=== PATIENT | female | born 1975 | race Caucasian/White ===

== ENCOUNTER → 2020-02-19 12:56 | Outpatient (CLI) | payer OTHER, SELFPAY ==
--- NOTE | ~2020-02-19 | US_ITS ---
US right upper quadrant INDICATION: Epigastric pain. Difficulty swallowing. PROCEDURE: Realtime right upper abdominal ultrasound. COMPARISON: No prior studies for comparison. FINDINGS: The pancreas is normal without focal mass or pancreatic ductal dilation. In the subcapsula r region of the left hepatic lobe there is an oval hyperechoic mass measuring 2.2 x 2 x 1.7 cm. Ther e is normal directional flow in the portal vein. The gallbladder is normal without stones, gallbladder wall thickening or pericholecystic fluid. Comm on bile duct measures 3.4 mm. No sonographic Gayle's sign. IMPRESSION: 1: 2.2 cm hyperechoic mass left hepatic lobe. In the absence of known malignancy in this likely repre sents a benign hemangioma. Recommend follow-up ultrasound in 6 months to assess for stability. Reviewed, dictated and finalized at location B. IMPRESSION: 1: 2.2 cm hyperechoic mass left hepatic lobe. In the absence of known malignanc y in this likely represents a benign hemangioma. Recommend follow-up ultrasound in 6 months to assess for stability.
== END ==
PROVIDERS: PCP Family Medicine; Visit Provider Nurse Practitioner Family
DX: R10.13 Epigastric pain (principal); R16.0 Hepatomegaly, not elsewhere classified
CPT/HCPCS: 76705

== ENCOUNTER 2024-05-23 12:14 | Outpatient (CLI) | payer OTHER, SELFPAY ==
--- NOTE | ~2024-05-23 | MR_ITS ---
EXAMINATION: MR brain/brain stem wo/w con DATE: 05/23/2024 13:01 INDICATION: Dizziness TECHNIQUE: Magnetic resonance imaging (MRI) of the brain and brainstem was performed without and with 15 mL Multihance intravenous contrast. Sequences included sagittal and axial T1-weighted FSE, axial diffusion-weighted FS EPI, axial T2*-weighted GRE, axial T2-weighted FLAIR Propeller, axial T2-weight ed Propeller, small bhpkb-wt-zxkc coronal FIESTA, small zajda-ni-vlnh coronal T1-weighted FSE, and sm all niasz-bj-aakg axial T1-weighted SPGR. Postcontrast sequences included axial T1-weighted FSE, smal l ulmak-ho-xbsm coronal T1-weighted FSE, and small eprby-cv-nygd axial T1-weighted SPGR. Apparent dif fusion coefficient (ADC) maps were created. COMPARISON: None. FINDINGS: There are no areas of restricted diffusion to suggest acute infarction. No intracranial hemorrhage or abnormal intracranial mass lesion. There are no intraparenchymal signal abnormalities seen on the ot her pulse sequences. The ventricles are symmetric and normal in size. There are no abnormal extra-axi al fluid collections. Normal seventh/eighth cranial nerve complexes. No cerebellopontine angles mass es. No evidence of mastoid or middle ear fluid. Flow voids are seen in the cerebral arteries on th e T2-weighted sequences consistent with their expected patency. Visualized orbits and soft tissues ar e unremarkable. There are no areas of abnormal enhancement on the post contrast images. IMPRESSION: 1. Unremarkable MRI of the brain and internal auditory canals. Reviewed, dictated and finalized at location A. IR ORDER CLERK
== END 2024-05-23 12:15 | disposition home or self-care (01) ==
LOC: MICIMG 12:16
PROVIDERS: PCP Family Medicine; Visit Provider Family Medicine
DX: R42 Dizziness and giddiness (principal); I95.89 Other hypotension
CPT/HCPCS: 70553; A9577

== ENCOUNTER 2024-07-17 10:22 | Outpatient (CLI) | payer OTHER, SELFPAY ==
--- OUTSIDE RECORDS SUMMARY | 2024-07-17 11:17 | XMS_ITS | Referral Summary ---
Author Organization [facility] Address [address] [place] [address] Care Team Providers Care Revenue Tax Specialist Name Role Phone Tracy Aguilar MD Primary Care Provider Allergies Active Allergy Reactions Criticality Noted Date Comments Levofloxacin Hives Medium 07/04/2013 Medications spironolactone (ALDACTONE) 25 mg tablet Take 1 tablet (25 mg total) by mouth daily 12/17/2019 Active minocycline (DYNACIN) 50 mg tablet Take 2 tablets (100 mg total) by mouth 2 (two) times a day Active Active Problems Problem Noted Date Diagnosed Date Rosacea 04/02/2024 Family history of breast cancer 07/04/2018 At risk for breast cancer 09/13/2016 Social History Tobacco Use Types Packs/Day Years Used Date Smoking Tobacco: Never Tobacco Cessation:Counseling Given: Not Answered Alcohol Use Standard Drinks/Week Comments Never 0 (1 standard drink = 0.6 oz pur e alcohol) AUDIT-C Answer Date Recorded Frequency of Alcohol Consumption Never 02/17/2020 Average Number of Drinks Not on file 020 Frequency of Binge Drinking Not on file 01/29 Comments No Sex and Gender Information Value Date Recorded Sex Assigned at Not on file Legal Sex Female 1:08 PM BULLDOZER OPERATOR Gender Identity Not on file Sexual Orientation Not on file Last Filed Vital Signs Vital Sign Reading Time Taken Comments Blood Pressure 104/69 08/25/2014 11:52 AM CDT Pulse 78 08/25/2014 11:52 AM CDT Temperature - - Respiratory Rate - - Oxygen Saturation 99% 08/25/2014 11:52 AM CDT Inhaled Oxygen Concentration - - Weight 74.9 kg (165 lb 3.2 oz) 04/02/2024 2:31 P M BULLDOZER OPERATOR Height 162.6 cm (5' 4.02 ) 03/16/2023 2:31 PM CS T Body Mass Index 28.34 03/16/2023 2:31 PM BULLDOZER OPERATOR Plan of Treatment Not on file Procedures Procedure Name Priority Date/Time Associated Diagnosis Comments SCREENING MAMMOGRAM BILATERAL W MEMO Schedule Routine, Read Routine (OP Routine) 04/02/2024 3:19 PM BULLDOZER OPERATOR Family history of breast cancer from Last 3 Months or Most Recently Relevant to Health Maintenance Results * Screening Mammogram Bilateral W Memo (04/02/2024 3:19 PM BULLDOZER OPERATOR) Anatomical Region Laterality Modality Breast Bilateral Mammography Narrative 04/03/2024 11:26 AM BULLDOZER OPERATOR Mammogram Technique: Bilateral Digital Breast Tomosynthesis, Bilateral C-view 2D Screening mammogram. Views obtained: bilateral craniocaudal and bilateral mediolateral oblique. Computer Aided Detection was performed. Mammogram Findings: The present examination has been compared to prior imaging studies performed at [facility] on 02/25/2021, 03/03/2022 and 03/16/2023. The breasts are heterogeneously dense, which may obscure small masses. There is no suspicious abnormality in either breast. Impression: There is no mammographic evidence of malignancy. Annual screening mammography is recommended. If supplemental screening is desired, breast MRI would be recommended in this patient with heterogeneously dense breasts. OVERALL FINAL ASSESSMENT: BI-RADS CATEGORY 1: Negative. Procedure Note Monie Flores MD - 04/03/2024 Mammogram Technique: Bilateral Digital Breast Tomosynthesis, Bilateral C-view 2D Screening mammogram. Views obtained: bilateral craniocaudal and bilateral mediolateral oblique. Computer Aided Detection was performed. Mammogram Findings: The present examination has been compared to prior imaging studies performed at [facility] on 02/25/2021, 03/03/2022 and 03/16/2023. The breasts are heterogeneously dense, which may obscure small masses. There is no suspicious abnormality in either breast. Impression: There is no mammographic evidence of malignancy. Annual screening mammography is recommended. If supplemental screeningis desired, breast MRI would be recommended in this patient with heterogeneously dense breasts. OVERALL FINAL ASSESSMENT: BI-RADS CATEGORY 1: Negative. Siena Hale DIRECTOR OF HOME ECONOMICS IMG MAMMO PROCEDURES Fi nal Result from Last 3 Months or Most Recently Relevant to Health Maintenance Insurance [employer] PPO eigital [facility] [id number] [place] [address] [facility] [id number] [facility] [id number] Care Teams Revenue Tax Specialist Relationship Specialty Start Date End Date Tracy Aguilar MD [address] [place] [address] PCP - General Family Medicine 03/13/23
--- OUTSIDE RECORDS SUMMARY | 2024-07-17 11:17 | XMS_ITS | Clinical Summary ---
Author Organization [facility] Address [address] [place] [address] Care Team Providers Care Refrigerator Repair Technician Name Role Phone Tracy Aguilar MD Primary [...] 07/04/2018 At risk for breast cancer 09/13/2016 Surgical History Surgery Date Site/Laterality Comments ABLATION TUBAL LIGATION BREAST BIOPSY 08/05/2021 Left Family History Medical History Relation Name Comments Breast cancer Mother Breast cancer Paternal Grandmother age un known maybe 40's Relation Name Status Comments Mother Paternal Grandmother Social History Tobacco Use Types Packs/Day Years [...] on file Legal Sex Female 1:08 PM ADVANCED PRACTICE NURSE Gender Identity Not on file Sexual Orientation Not on file Obstetrics History Last Filed Vital Signs Vital Sign Reading Time Taken Comments Blood Pressure 104/69 08/25/2014 11:52 AM CDT Pulse 78 08/25/2014 11:52 AM CDT Temperature - - Respiratory Rate - - Oxygen Saturation 99% 08/25/2014 11:52 AM CDT Inhaled Oxygen Concentration - - Weight 74.9 kg (165 lb 3.2 oz) 04/02/2024 2:31 P M ADVANCED PRACTICE NURSE Height 162.6 cm (5' 4.02 ) 03/16/2023 2:31 PM CS T Body Mass Index 28.34 03/16/2023 2:31 PM ADVANCED PRACTICE NURSE Plan of Treatment Health Maintenance Due Date Last Done Comments Cervical Cancer Screening 1977 Colon Cancer Screening-Colonoscopy 1977 Depression Screening 1977 Hepatitis C Screening 1977 Hepatitis B Screening 1995 Regular Well Visit/Exam 18-64 1995 DTaP/Tdap/Td Vaccine (6 - Tdap) 05/22/2002 05/21/2002, 11/26/1991, 12/19/1982, Additional history exists Influenza Vaccine (#1) 2023 Breast Cancer Screening-Mammogram 04/02/2025 04/02/2024, 03/16/2023, 03/03/2022, Additional history exists Pneumococcal vaccine <65 Aged Out No longer eligible based on patient's age to complete this topic Procedures Procedure Name Priority Date/Time Associated Diagnosis Comments SCREENING MAMMOGRAM BILATERAL W MEMO Schedule Routine, Read Routine (OP Routine) 04/02/2024 3:19 PM ADVANCED PRACTICE NURSE Family history of breast cancer from Last 3 Months or Most Recently Relevant to Health Maintenance Results * Screening Mammogram Bilateral W Memo (04/02/2024 3:19 PM ADVANCED PRACTICE NURSE) Anatomical Region Laterality Modality Breast Bilateral Mammography Narrative 04/03/2024 11:26 AM ADVANCED PRACTICE NURSE Mammogram Technique: Bilateral Digital Breast Tomosynthesis, Bilateral C-view 2D Screening mammogram. Views obtained: bilateral craniocaudal and bilateral mediolateral oblique. Computer Aided Detection was performed. Mammogram Findings: The present examination has been compared to prior imaging studies performed at [facility] on 02/25/2021, 03/03/2022 and 03/16/2023. The [...] compared to prior imaging studies performed at [facility] on 02/25/2021, 03/03/2022 and 03/16/2023. The breasts are heterogeneously dense, which may obscure small masses. There is no suspicious abnormality in either breast. Impression: There is no mammographic evidence of malignancy. Annual screening mammography is recommended. If supplemental screeningis desired, breast MRI would be recommended in this patient with heterogeneously dense breasts. OVERALL FINAL ASSESSMENT: BI-RADS CATEGORY 1: Negative. Siena Hale NP IMG MAMMO PROCEDURES Fi nal Result from Last 3 Months or Most Recently Relevant to Health Maintenance Insurance Months Of Me PPO [facility] [facility] BLUE ACCESS [facility] [id number] [facility] [id number] [facility] [id number] Care Teams Refrigerator Repair Technician Relationship Specialty Start Date End Date Tracy Aguilar MD [address] [place] [address] PCP - General Family Medicine 03/13/23
--- OUTSIDE RECORDS SUMMARY | 2024-07-17 11:18 | XMS_ITS | Clinical Summary ---
Author Organization [facility] Address [facility] [place] [address] Care Team Providers Care Trumpet Player Name Role Phone Tracy Aguilar MD Primary Care Provider Allergies Active Allergy Reactions Criticality Noted Date Comments Levofloxacin Hives 07/04/2013 Medications clindamycin (CLEOCIN T) 1 % gel Apply topically 2 (two) times daily. 3 Active doxycycline hyclate (VIBRAMYCIN) 100 MG capsule Take 1 capsule (100 mg total) by mouth 2 (two) times daily with meals. 4 Active Active Problems No known active problems Encounters Date Type Department Care Team Description 05/21/2024 4:20 PM WEB ART DIRECTOR - 05/21/2024 11:59 PM [facility] Hospital Encounter [facility] [address] [place] [address] Umesh Rodriguez PA Discharge Disposition: Home or Self Care (Routine Discharge) 05/21/2024 Orders Only [facility] [address] [address] Umesh Rodriguez PA 05/21/2024 Travel from Last 3 Months Immunizations Name Administration Dates Next Due Dtp (Generic) 12/19/1982,02/01/1979,1977 ,1977,1977 MMR (MMRII) 11/26/1991,08/29/1978 Polio Opv (Generic) 12/19/1982,02/01/1979,1977,1977,1977 Td (TDVAX) 05/21/2002,11/26/1991 Social History Tobacco Use Types Packs/Day Years Used Date Smoking Tobacco: Never Smokeless Tobacco: Never Tobacco Cessation:Counseling Given: No PHQ-2 Answer Date Recorded Patient Health Questionnaire-2 Score 0 11/20/2023 Comments No Sex and Gender Information Value Date Recorded Sex Assigned at Female 05/21/2024 4:16 PM WEB ART DIRECTOR Legal Sex Female 5:27 PM CDT Gender Identity Not on file Sexual Orientation Not on file Last Filed Vital Signs Vital Sign Reading Time Taken Comments Blood Pressure 98/68 11/20/2023 7:39 AM CDT Pulse 90 11/20/2023 7:39 AM CDT Temperature 36.8 C (98.2 F) 11/20/2023 7:39 AM CDT Respiratory Rate 12 11/20/2023 7:39 AM CDT Oxygen Saturation 100% 11/20/2023 7:39 AM CDT Inhaled Oxygen Concentration - - Weight 74.8 kg (165 lb) 11/20/2023 7:39 AM CDT Height 162.6 cm (5' 4 ) 11/20/2023 7:39 AM CDT Body Mass Index 28.32 11/20/2023 7:39 AM CDT Plan of Treatment Health Maintenance Due Date Last Done Comments Cervical Cancer Screening Pap Smear (Age 30 to 64) Every 3 Years 1977 Colorectal Cancer Screening Colonoscopy (10 Years) 1977 Annual Physical 1980 Hepatitis C 1995 Hepatitis B Vaccines (1 of 3 - 19+ 3-dose series) 1996 DTaP, Tdap and Td Vaccines (6 - Tdap) 05/22/2002 05/21/2002, 11/26/1991, 12/19/1982, Additional history exists Cervical Cancer Screening Pap with HPV Testing (Age 30 to 64) Every 5 Years 2007 Cervical Cancer Screening with HPV 2007 COVID-19 Vaccine ( season) 2023 Influenza Adult (#1) 2024 PHQ-2 (Physician [place]) 04/30/2024 11/20/2023 Mammogram Screening 04/02/2026 04/02/2024, 03/16/2023, 03/03/2022, Additional history exists Meningococcal B Vaccine Aged Out No l onger eligible based on patient's age to complete this topic Meningococcal Vaccine Aged Out No celio trell eligible based on patient's age to complete this topic Pneumococcal Vaccine: Pediatrics (0 to 5 Years) and At-Risk Patients (6 to 64 Years) Aged Out No longer eligible based on patient's age to complete this topic RSV Immunizations Under 20 Months Aged Out No longer eligible based on patient's age to complete this topic Procedures Procedure Name Priority Date/Time Associated Diagnosis Comments SED RATE, ERYTHROCYTE (ESR) Routine 05/21/2024 4:26 PM WEB ART DIRECTOR Dizziness Other specified hypotension Diaphoresis IRON SAT PANEL (IRON,IBC,%SAT) Routine 05/21/2024 4:26 PM WEB ART DIRECTOR Dizziness Other specified hypotension Diaphoresis COMPREHENSIVE METABOLIC PANEL Routine 05/21/2024 4:26 PM WEB ART DIRECTOR Dizziness Other specified hypotension Diaphoresis THYROID STIM HORMONE TSH Routine 05/21/2024 4:26 PM WEB ART DIRECTOR Dizziness Other specified hypotension Diaphoresis CBC W/DIFF AUTOMATED Routine 05/21/2024 4:26 PM WEB ART DIRECTOR Dizziness Other specified hypotension Diaphoresis T4, FREE, DIRECT DIALYSIS Routine 05/21/2024 4:26 PM WEB ART DIRECTOR Dizziness Other specified hypotension Diaphoresis from Last 3 Months Results * T4, FREE, DIRECT DIALYSIS (05/21/2024 4:26 PM WEB ART DIRECTOR) T4 FREE DIRECT DIALYSIS 2.1 0.9 - 2.2 ng/dL 05/28/2024 2:26 PM WEB ART DIRECTOR [facility] Comment: reference ranges: First Trimester: 0.9-2.0 ng/dL Second Trimester: 0.8-1.5 ng/dL Third Trimester: 0.8-1.7 ng/dL This test was developed and its analytical performance characteristics have been determined by [employer] [place], [place]. It has not been cleared or approved by the U.S. Food and Drug Administration. This assay has been validated pursuant to the CLIA regulations and is used for clinical purposes. Test Performed by [facility], [facility], [address] [place] [address] Marcos Strong M.D., Ph.D., Director of Laboratories , CLIA [id number] 05/21/2024 4:26 PM WEB ART DIRECTOR Umesh Rodriguez [place] LABORATORY Final Resu lt Performing Organization Address [facility]/ZIP Co de Phone Number [employer] [address] , [place] [phone] * IRON SAT PANEL (IRON,IBC,%SAT) (05/21/2024 4:26 PM WEB ART DIRECTOR) IRON 72 50.0 - 170.0 MCG/DL 05/22/2024 6:18 PM WEB ART DIRECTOR [facility] IRON BINDING CAPACITY 272 250 - 450 MCG/DL 05/22/2024 6:18 PM WEB ART DIRECTOR [facility] IRON SATURATION 26 20 - 55 % 6:18 PM WEB ART DIRECTOR [facility] 05/21/2024 4:26 PM WEB ART DIRECTOR [facility] [place] LABORATORY Final Resu lt [facility] [address] [place] [address], [place] [phone] * SED RATE, ERYTHROCYTE (ESR) (05/21/2024 4:26 PM WEB ART DIRECTOR) ESR 1 <20 MM/HR 05/21/2024 9:39 PM WEB ART DIRECTOR [facility] Comment:Testing performed on [employer] iSED. 05/21/2024 4:26 PM WEB ART DIRECTOR us Umesh Rodriguez PA LABORATORY Final Resu lt [facility] [address] [place] [address], [place] [phone] * (ABNORMAL) COMPREHENSIVE METABOLIC PANEL (05/21/2024 4:26 PM WEB ART DIRECTOR) [facility] GLUCOSE 127(H) 70 - 99 MG/DL 05/21/2024 5:00 PM [facility] BUN 15 7 - 18 MG/DL 05/21/2024 5:00 PM [facility] CREATININE S/P/B 0.75 0.50 - 1.20 MG/DL 05/21/2024 5:00 PM [facility] SODIUM S/P/B 138 136 - 145 MMOL/L 05/21/2024 5:00 PM [facility] POTASSIUM S/P/B 4.0 3.5 - 5.1 MMOL/L 05/21/2024 5:00 PM [facility] CHLORIDE S/P/B 100 100 - 108 MMOL/L 05/21/2024 5:00 PM [facility] CO2 29.2 21.0 - 32.0 MMOL/L 05/21/2024 5:00 PM [facility] CALCIUM S/P/B 8.4(L) 8.5 - 10.1 MG/DL 05/21/2024 5:00 PM [facility] BILIRUBIN TOTAL S/P/B 0.6 0.2 - 1.2 MG/DL 05/21/2024 5:00 PM [facility] Comment: THIS ASSAY IS NOT RECOMMENDED FOR PATIENTS UNDERGOING TREATMENT WITH ELTROMBOPAG DUE TO THE POTENTIAL FOR FALSELY ELEVATED RESULTS. TOTAL PROTEIN S/P/B 7.0 6.4 - 8.2 G/DL 05/21/2024 5:00 PM [facility] ALBUMIN S/P/B 3.9 3.4 - 5.0 G/DL 05/21/2024 5:00 PM [facility] AST 12(L) 15 - 37 U/L 05/21/2024 5:00 PM [facility] ALT 14 14 - 55 U/L 05/21/2024 5:00 PM [facility] ALKALINE PHOSPHATASE S/P/B 74 50 - 136 U/L 05/21/2024 5:00 PM [facility] ANION GAP 8.8 5.0 - 15.0 MMOL/L 05/21/2024 5:00 PM [facility] BUN CREATININE RATIO 20.0 6 - 26 05/21/2024 5:00 PM [facility] A/G RATIO 1.3 1.0 - 2.5 RATIO 05/21/2024 5:00 PM [facility] GFR ESTIMATE >90 >90 ML/MIN/1.7 3 M2 05/21/2024 5:00 PM [facility] Comment: NOTE: eGFR is not calculated for patients <18 years of age. This is an estimated GFR calculation using the new CKD EPI creatinine equation without race and so does not require a correction factor for race. This estimated GFR should not be used for calculating drug doses. 05/21/2024 4:26 PM WEB ART DIRECTOR us Umesh CHO LABORATORY Final Resu lt [address] [place] [address], * (ABNORMAL) CBC W/DIFF AUTOMATED (05/21/2024 4:26 PM WEB ART DIRECTOR) WBC 6.07 4.50 - 11.00 x10'3/uL 05/21/2024 4:40 PM [facility] RBC 4.85 4.00 - 5.20 x10'6/uL 05/21/2024 4:40 PM [facility] HGB 13.9 12.0 - 16.0 G/DL 05/21/2024 4:40 PM [facility] HCT 42.5 38.0 - 48.0 % 05/21/2024 4:40 PM [facility] MCV 87.6 80.0 - 100.0 FL 05/21/2024 4:40 PM [facility] MCH 28.7 26.0 - 34.0 PG 05/21/2024 4:40 PM [facility] MCHC 32.7 31.0 - 37.0 G/DL 05/21/2024 4:40 PM [facility] RDW 12.1 11.6 - 14.8 % 05/21/2024 4:40 PM [facility] PLT 319 130 - 400 x10'3/uL 05/21/2024 4:40 PM [facility] MPV 10.0 7.0 - 12.0 FL 05/21/2024 4:40 PM [facility] CBC COMMENT AUTOMATED RBC MORPHOLOGY AND PLATELET EVALUATION NORMAL 05/21/2024 4:40 PM [facility] NEUTROPHILS % 79.3(H) 40.0 - 74.0 % 05/21/2024 4:40 PM [facility] LYMPHOCYTES % 15.8 14.0 - 46.0 % 05/21/2024 4:40 PM [facility] MONOCYTES % 3.6(L) 4.0 - 13.0 % 05/21/2024 4:40 PM [facility] EOSINOPHILS 0.3 0.0 - 7.0 % 05/21/2024 4:40 PM [facility] BASOPHILS 0.7 0.0 - 3.0 % 05/21/2024 4:40 PM [facility] IMMATURE GRANS % 0.3 0.0 - 0.43 % 05/21/2024 4:40 PM WEB ART DIRECTOR [facility] NRBC % 0.0 % 05/21/2024 4:40 PM WEB ART DIRECTOR [facility] ABS. NEUTROPHILS TOTAL 4.81 1.69 - 7.81 x10'3/uL 05/21/2024 4:40 PM WEB ART DIRECTOR [facility] ABS. LYMPHOCYTES 0.96 0.21 - 5.42 x10'3/uL 05/21/2024 4:40 PM WEB ART DIRECTOR [facility] ABS. MONOCYTES 0.22 0.04 - 1.37 x10'3/uL 05/21/2024 4:40 PM WEB ART DIRECTOR [facility] ABS. EOSINOPHILS 0.02 0.00 - 0.68 x10'3/uL 05/21/2024 4:40 PM WEB ART DIRECTOR [facility] ABS. BASOPHILS 0.04 0.00 - 0.08 x10'3/uL 05/21/2024 4:40 PM WEB ART DIRECTOR [facility] ABS. IMMATURE GRANULOCYTES 0.02 0.00 - 0.06 x10'3/uL 05/21/2024 4:40 PM WEB ART DIRECTOR [facility] ABS. NUCLEATED RBC'S 0.00 0.00 - 0.01 x10'3/uL 05/21/2024 4:40 PM [facility] 05/21/2024 4:26 PM WEB ART DIRECTOR us Umesh Rodriguez PA LABORATORY Final Resu lt [facility] [address] [place] [address], * THYROID STIM HORMONE TSH (05/21/2024 4:26 PM WEB ART DIRECTOR) TSH 1.170 0.358 - 3.74 uIU/ML 05/21/2024 9:45 PM WEB ART DIRECTOR [facility] Comment: HIGH DOSES OF BIOTIN MAY INTERFERE WITH THIS TEST RESULT. CORRELATION TO CLINICAL HISTORY AND PRESENTATION RECOMMENDED. 05/21/2024 4:26 PM WEB ART DIRECTOR us Umesh Rodriguez PA LABORATORY Final Resu lt [facility] [address] [place] [address], [place] [phone] from Last 3 Months Insurance [facility] RISK MANAGEMENT [facility] Care Teams Trumpet Player Relationship Specialty Start Date End Date Tracy Aguilar MD [address] [place] [address] [place] [address] PCP - General FAMILY PRACTICE 05/21/24
[2024-07-18 06:28] LABS: FSH 14.2 mIU/mL
[2024-07-22 21:19] LABS: Estrogen 177 pg/mL
== END 2024-07-17 10:23 | disposition home or self-care (01) ==
PROVIDERS: PCP Family Medicine; Visit Provider Obstetrics & Gynecology
DX: N95.1 Menopausal and female climacteric states (principal)
CPT/HCPCS: 36415; 82672; 83001; 84443

== ENCOUNTER 2024-09-20 18:24 | Emergency (ER) | payer OTHER, SELFPAY ==
[2024-09-20 18:29] VITALS: BP 103/78; PULSE 78; RESP 16; TEMP 36.3; O2SAT 100
--- NOTE | 2024-09-20 18:34 | ED.SKABFB ---
HPI - Skin/Abscess/Foreign Bdy General Chief complaint: Skin/Abscess/Foreign Body Stated complaint: Skin/Abscess/Foreign Body Time Seen by Provider: 09/20/24 18:34 Source: patient Mode of arrival: ambulatory Limitations: no limitations History of Present Illness HPI narrative: 49-year-old female presents with complaint of poison claire rash to neck. In the past reports that poison claire spread significantly, IM Kenalog was the only thing that helped. All systems reviewed and negative except as noted above. Related Data Home Medications ?Medication ?Instructions ?Recorded ?Confirmed ?Last Taken ?Type nystatin 100,000 unit/gram topical topical 09/20/24 Unknown History powder (Klayesta) tacrolimus 0.03 % topical ointment topical 09/20/24 Unknown History Allergies Allergy/AdvReac Type Severity Reaction Status Date / Time metronidazole Allergy Mild HIVES Verified 09/20/24 18:36 levofloxacin Allergy Unknown unknown Verified 09/20/24 18:36 Review of Systems Review of Systems: CONSTITUTIONAL: Denies fever, chills, or sweats. EYES: Denies visual changes, redness, or discharge. ENT: Denies rhinorrhea, congestion, sore throat, or otalgia. CARDIOVASCULAR: Denies chest pain, palpitations, or edema. RESPIRATORY: Denies cough or dyspnea. GASTROINTESTINAL: Denies abdominal pain, nausea, vomiting, or diarrhea. GENITOURINARY: Denies dysuria or hematuria. SKIN: Reports poison claire rash with itching. MUSCULOSKELETAL: Denies back pain, joint pain, or myalgia. NEUROLOGIC: Denies headache, numbness, or weakness. PSYCHIATRIC: Denies anxiety or depression. All other systems reviewed are negative, except as documented in HPI. [facility]LY [facility] Past Medical History Medical History DUB (dysfunctional uterine bleeding) Abnormal Pap smear of cervix 2019 ASCUS, HPV pos 11/14/19 ASCUS, HPV neg Vaginal delivery x 2 Surgical History Surgical History History of foot surgery History of colposcopy 2005 History of tubal ligation History of endometrial ablation Family History Family History Grandparent Diabetes mellitus Mother Family history of malignant neoplasm of breast in first degree relative Other Cerebrovascular accident Family history of cardiovascular disease Family history of type 2 diabetes mellitus Hypertension Social History Social History Smoking status: Never smoker Second hand tobacco smoke exposure: No Alcohol intake: never Substance use: unknown Do You Feel Safe in your Home?: Yes Lack of Transportation: No Lack of Food: Never True Current Housing: I Have Housing Concerned About Future Housing: No Difficulty Paying Gas/Electric Bills: No Difficulty Paying for Meds: No Currently Unemployed: No Education: Associate Degree Difficulty w/ Childcare or Family Care: No Comments At time of signature, agree with nursing past medical, surgical, social and family history. There is no relevant family history pertinent to the presenting complaint. Exam Narrative: GENERAL: This is a well-nourished, well-developed patient, in no apparent distress. HEAD: normocephalic, atraumatic. EYES: PERRL. Sclera clear/white. Vision is grossly intact. EARS: External ears nereyda NOSE: External nose normal NECK: Neck supple, non-tender without lymphadenopathy, masses or thyromegaly. CARDIOVASCULAR: Regular rate and rhythm without murmurs, gallops, or rubs. RESPIRATORY: Clear to auscultation. Breath sounds equal bilaterally. No wheezes, rales, or rhonchi. SKIN: warm, Dry, intact, good texture and turgor. Erythema with mild swelling noted to anterior aspect of neck and underneath chin. NEURO: awake, alert, and oriented to person, place and time. There were no obvious focal neurologic abnormalities. EXTREMITIES: No joint tenderness, effusion, or edema noted. Course Course Level of Care: Express Care Visit Vital Signs Vital signs: Vital Signs Temperature 36.3 C L 09/20/24 18:29 Pulse Rate 78 09/20/24 18: Respiratory Rate 16 09/20/24 18: Blood Pressure 103/78 09/20/24 18: Pulse Oximetry 100 09/20/24 18:29 Temperature 36.3 C L 09/20/24 18: Pulse Rate 78 09/20/24 18:29 Respiratory Rate 16 09/20/24 18: Blood Pressure 103/78 09/20/24 18: Pulse Oximetry 100 05/24/25 18:29 Reviewed MDM - Skin/Abscess/Foreign Bdy MDM Narrative Medical decision making narrative: Patient treated with IM Kenalog for poison claire rash today. Patient is alert, nontoxic. Given triamcinolone steroid cream for poison claire. Discharge Plan Discharge Clinical Impression: Dermatitis due to plants, including poison claire, sumac, and oak Patient Disposition: Home Condition: Stable Instructions: Poison Claire (ED) Additional Instructions: You were given an IM injection Kenalog today. Apply prescription steroid cream twice a day to affected area sparingly. May take Claritin or Zyrtec daily to treat itching. Follow-up with your primary care physician if not improving. Patient Language: Portuguese Prescriptions: New triamcinolone acetonide 0.1 % cream 1 applic topical BID Qty: 30 0RF No Action tacrolimus 0.03 % ointment TOPICAL nystatin [Klayesta] 100,000 unit/gram powder TOPICAL escitalopram oxalate [Lexapro] 5 mg tablet 5 mg PO DAILY Qty: 30 0RF Follow-up/Referrals: Tracy Aguilar MD [Primary Care Provider] - Time of Disposition: 18:40
[2024-09-20] MEDS: TRIAMCINOLONE ACET INJ 40 MG/ML VIAL IM (18:47)
== END 2024-09-20 19:06 | disposition home or self-care (01) ==
PROVIDERS: Emergency Provider Nurse Practitioner Family; PCP Family Medicine
DX: L23.7 Allergic contact dermatitis due to plants, except food (principal)
CPT/HCPCS: 96372; 99213; G0463; J3301

== ENCOUNTER 2025-01-02 12:10 | Emergency (ER) | payer BC, SELFPAY ==
--- NOTE | 2025-01-02 12:12 | ED.SKABFB ---
HPI - Skin/Abscess/Foreign Bdy General Chief complaint: Skin/Abscess/Foreign Body Stated complaint: Skin Irritation Time Seen by Provider: 01/02/25 12:28 Source: patient, RN notes reviewed and old records reviewed Mode of arrival: ambulatory Limitations: no limitations History of Present Illness HPI narrative: 49-year-old female presents to the [facility] with multiple bug bites to the abdomen and legs. States it is extremely itchy along the waist and legs. States that she was on a horse 2 days ago and developed yesterday. Onset (ago): day(s) (2) Related Data Allergies Allergy/AdvReac Type Severity Reaction Status Date / Time metronidazole Allergy Mild HIVES Verified 01/02/25 12:22 levofloxacin Allergy Unknown unknown Verified 01/02/25 12:22 Review of Systems Review of Systems: All systems reviewed & are unremarkable except as noted in HPI and below Constitutional: Constitutional: Reports no additional constitutional complaints ENT: Reports system reviewed and no additional complaints, except as documented Cardiovascular: Cardiovascular: Reports no additional cardiovascular complaints, Denies chest pain and Denies dyspnea Respiratory: Respiratory: Reports no additional respiratory complaints, Denies chest congestion, Denies cough and Denies dyspnea Musculoskeletal: Musculoskeletal: Reports no additional musculoskeletal complaints Integumentary/Breasts: Skin/Breast: Reports as per HPI PMFSH Past Medical History Medical History DUB (dysfunctional uterine bleeding) Abnormal Pap smear of cervix 2019 ASCUS, HPV pos 11/14/19 ASCUS, HPV neg Vaginal delivery x 2 Surgical History Surgical History History of foot surgery History of colposcopy 2005 History of tubal ligation History of endometrial ablation Family History Family History Grandparent Diabetes mellitus Mother Family history of malignant neoplasm of breast in first degree relative Other Cerebrovascular accident Family history of cardiovascular disease Family history of type 2 diabetes mellitus Hypertension Social History Social History Smoking status: Never smoker Second hand tobacco smoke exposure: No Alcohol intake: never Substance use: unknown Do You Feel Safe in your Home?: Yes Lack of Transportation: No Lack of Food: Never True Current Housing: I Have Housing Concerned About Future Housing: No Difficulty Paying Gas/Electric Bills: No Difficulty Paying for Meds: No Currently Unemployed: No Education: Associate Degree Difficulty w/ Childcare or Family Care: No Comments At the time of my signature, I reviewed and agree with the nursing past medical, surgical, social, and family history. There is no relevant family history pertinent to the patient complaint. Exam Const: General: cooperative, healthy appearing, comfortable, no acute distress, well developed, alert and well nourished Nutritional Appearance: well nourished Orientation/consciousness: patient oriented x3 Limitations: no limitations HENMT: Head: normal to inspection Mouth: Yes Normal oral and palatal mucosa present, Yes lip normal, Yes tongue normal and Yes moist mucous membranes Eyes: General: appearance normal, both eyes and all related structures Alignment and Position: alignment normal Neck: Neck: normal visual inspection, full ROM, no lymphadenopathy and no meningeal signs Chest: Chest palpation & inspection: normal inspection of the chest Resp: Effort & Inspection: normal respiratory effort and able to speak in complete sentences Auscultation: clear to auscultation bilaterally, no crackles, no rales, no rhonchi and no wheezes Cardio: Rate: regular rate Skin: General skin exam: normal color and no rashes or lesions noted Other: Multiple red raised bumps most consistent with insect bites, concern for chiggers or other insect. Discussed [id number] treatments, discussed using triamcinolone. No significant erythema noted to the areas. No signs of a dermatitis Neuro: General: patient oriented x3, gait normal, moves all extremities and no meningeal signs Cognition (Neuro): normal cognition Speech: normal speech Gait exam (Neuro): Normal gait present Extrem: General: normal to inspection, full ROM, capillary refill normal and normal gait Psych: Appearance: grossly normal and well kempt Mental Status: mental status grossly normal Speech and movement: Normal speech and movement present and Clear speech present Affect: normal affect Attitude: cooperative Course Course Level of Care: Express Care Visit Vital Signs Vital signs: Vital Signs Temperature 97.5 F L 01/02/25 12:17 Pulse Rate 78 01/02/25 12:17 Respiratory Rate 18 01/02/25 12:17 Blood Pressure 114/67 01/02/25 12:17 Pulse Oximetry 100 01/02/25 12:17 Oxygen Delivery Room Air 01/02/25 12:17 Temperature 97.5 F L 01/02/25 12:17 Pulse Rate 78 01/02/25 12:17 Respiratory Rate 18 01/02/25 12:17 Blood Pressure 114/67 01/02/25 12:17 Pulse Oximetry 100 01/02/25 12:17 Oxygen Delivery Room Air 01/02/25 12:17 Reviewed MDM - Skin/Abscess/Foreign Bdy MDM Narrative Medical decision making narrative: Patient presents to the [facility] with multiple insect bites, itchy. Patient appropriate for outpatient treatment with close follow Discharge instructions reviewed with patient, as well as provided in writing per nursing staff. The instructions also include specific and strict return/GO TO THE ER as well as f/u information. All questions have been answered, and the patient deny any further questions with discharge and discharge plan. Some parts of this dictation were generated by voice recognition software and may contain typographical and/or grammatical inaccuracies. Differential Diagnosis Differential diagnosis: Likely abscess of skin or subcutaneous tissue, viral exanthem, urticaria, herpes zoster, cellulitis, eczema, insect bites, impetigo and contact dermatitis Critical Care Time Critical Care Time Critical Care Time: No Discharge Plan Discharge Clinical Impression: Insect bites Patient Disposition: Home Condition: Stable Instructions: Urticaria (ED), Insect Bite or Sting (ED), Chigger Bite (ED) Additional Instructions: The most important part of your care is follow up with Primary care provider. Take Benadryl 25 mg every 8 hours for itching Take Zyrtec every day Avoid hot showers, Take cool showers. Hot showers will make rashes worse Apply cool compresses every 2-3 hours for 15 minutes Go to the ER for new or worsening symptoms such as shortness of breath. Patient Language: Setswana Prescriptions: New triamcinolone acetonide 0.1 % cream 1 applic topical BID Qty: 30 0RF Follow-up/Referrals: UNKNOWN,DOCTOR [Non-Staff] Stand Alone Forms: Work/School Release IP Time of Disposition: 12:36
[2025-01-02 12:17] VITALS: BP 114/67; PULSE 78; RESP 18; TEMP 36.4; O2SAT 100
== END 2025-01-02 12:36 | disposition home or self-care (01) ==
PROVIDERS: Emergency Provider Nurse Practitioner
DX: S30.861A Insect bite (nonvenomous) of abdominal wall, initial encounter (principal); S80.862A Insect bite (nonvenomous), left lower leg, initial encounter; S80.861A Insect bite (nonvenomous), right lower leg, initial encounter; W57.XXXA Bitten or stung by nonvenomous insect and other nonvenomous arthropods, initial encounter
CPT/HCPCS: 99213; G0463